=== PATIENT | female | born 1970 | race Caucasian/White ===

== ENCOUNTER → 2018-04-09 | Outpatient (CLI) | payer OTHER ==
[2018-04-10 01:23] LABS: Amylase 67 U/L (23-121); Lipase 106 U/L (14-63)
== END | disposition home or self-care (01) ==
LOC: LABWHC1 16:56
PROVIDERS: ATTEND Family Medicine
DX: R10.84 Generalized abdominal pain (principal)
CPT/HCPCS: 36415; 82150; 83690

== ENCOUNTER → 2019-04-04 | Outpatient (CLI) | payer OTHER ==
[2019-04-04 11:44] LABS: HGB 14.7 gm/dL (11.4-16.0); MCH 28.4 pg (25.0-35.0); MCHC 32.7 g/dL (31.0-37.0); MCV 86.9 fL (80.0-100.0); Mean Platelet Volume 7.8; Platelet Count 227 k/uL (150-450); RBC 5.18 m/uL (3.80-5.40); WBC 4.6 k/uL (3.8-10.6)
[2019-04-04 16:47] LABS: Thyroid Peroxidase Antibodies 36.1 U/mL (0.0-60.0)
[2019-04-04 16:58] LABS: African American GFR (CKD) 102.5 (60.0-200.0); Albumin 4.6 g/dL (3.80-4.90); Albumin/Globulin Ratio 2.56 (1.60-3.17); Anion Gap 6.3 mmol/L (4.00-12.00); Calcium 9.2 mg/dL (8.7-10.3); Carbon Dioxide 28.7 mmol/L (21.6-31.8); Globulin 1.8 g/dL (1.6-3.3); Non-African American GFR(CKD) 88.4 (60.0-200.0); Potassium 4.3 mmol/L (3.5-5.5); Total Bilirubin 0.5 mg/dL (0.2-1.2); Total Protein 6.4 g/dL (6.2-8.2)
[2019-04-04 17:06] LABS: Follicle Stimulating Hormone 21.5 mIU/mL; Prolactin 8.2 ng/mL (2.8-29.2); T4, Free (Free Thyroxine) 1.2 ng/dL (0.80-1.80)
[2019-04-04 18:28] LABS: Hemoglobin A1C 5.5 % (4.0-6.0)
[2019-04-04 21:43] LABS: ACTH 7.77 pg/mL (0.00-45.99)
== END | disposition home or self-care (01) ==
LOC: LABWHC1 10:02
PROVIDERS: ATTEND Internal Medicine Endocrinology, Diabetes & Metabolism
DX: R53.83 Other fatigue (principal); R73.09 Other abnormal glucose; R35.1 Nocturia
CPT/HCPCS: 36415; 80053; 82024; 82533; 82607; 83001; 83036; 84146; 84439; 84443; 84480; 85027; 86376

== ENCOUNTER → 2019-12-19 | Outpatient (CLI) | payer OTHER ==
[2019-12-19 12:47] LABS: HCT 45.1 % (34.0-46.0); MCH 29.6 pg (25.0-35.0); MCHC 33.2 g/dL (31.0-37.0); Mean Platelet Volume 7.5; Platelet Count 206 k/uL (150-450); RBC 5.07 m/uL (3.80-5.40); RDW 12.4 % (11.5-15.5); WBC 5.3 k/uL (3.8-10.6)
[2019-12-19 12:56] LABS: ALT 26 U/L (4-34); AST 26 U/L (14-36); African American GFR (CKD) >90 (>60 ml/min/1.73 sqM); Albumin 4.4 g/dL (3.5-5.0); Alkaline Phosphatase 79 U/L (38-126); Amylase 50 U/L (30-110); Anion Gap 7 mmol/L; Blood Urea Nitrogen 18 mg/dL (7-17); Calcium 9.4 mg/dL (8.4-10.2); Carbon Dioxide 30 mmol/L (22-30); Chloride 102 mmol/L (98-107); Glucose 93 mg/dL (74-99); Lipase 131 U/L (23-300); Non-African American GFR(CKD) >90 (>60 ml/min/1.73 sqM); Potassium 4.1 mmol/L (3.5-5.1); Sodium 139 mmol/L (137-145); Total Bilirubin 0.5 mg/dL (0.2-1.3); Total Protein 7.3 g/dL (6.3-8.2)
[2019-12-19 14:17] LABS: Erythrocyte Sedimentation Rate 2 mm/hr (0-20)
--- NOTE | 2019-12-19 15:13 | US ---
EXAMINATION TYPE: US abdomen complete DATE OF EXAM: 12/19/2019 COMPARISON: NONE CLINICAL HISTORY: R10.84 ABN PAIN. Heartburn for 3-4 weeks, RUQ pain for 4 days EXAM MEASUREMENTS: Liver Length: 14.2 cm Gallbladder Wall: 0.2 cm CBD: 0.6 cm Spleen: 12.4 cm Right Kidney: 9.6 x 3.7 x 4.3 cm Left Kidney: 11.3 x 4.7 x 4.7 cm Technical limitations due to large amount of overlying bowel content Pancreas: Obscured by bowel gas Liver: wnl Gallbladder: no evidence of stones Evidence for sonographic Haro's sign: No CBD: wnl Spleen: wnl Right Kidney: no evidence of hydronephrosis Left Kidney: possible stone upper pole = 0.7cm Upper IVC: wnl Abd Aorta: wnl IMPRESSION: 1. Echogenic foci with some posterior shadowing superior pole left kidney may be a nonobstructing ross al stone
== END | disposition home or self-care (01) ==
LOC: RADUSWWP 11:08
PROVIDERS: ATTEND Family Medicine
DX: R10.84 Generalized abdominal pain (principal)
CPT/HCPCS: 36415; 76700; 80053; 82150; 83690; 85027; 85652

== ENCOUNTER → 2019-12-30 | Outpatient (CLI) | payer OTHER ==
--- NOTE | 2019-12-30 10:31 | NM ---
EXAMINATION TYPE: NM hepatobiliary w CCK DATE OF EXAM: 12/30/2019 COMPARISON: Ultrasound abdomen 12/19/2019 HISTORY: Chronic cholecystitis, K 81.1 TECHNIQUE: After the intravenous administration of 4.9 mCi Tc 99m Mebrofenin hepatobiliary scintigrap hy is performed. Immediate images post injection. FINDINGS: There is satisfactory initial accumulation of tracer by the liver. The gallbladder is visualized wit hin 30 minutes. The small bowel activity is noted within 6 minutes. At one hour CCK was administere d, patient was injected with 1.6 mcg of Kinevac, and gallbladder ejection fraction is calculated at 8 9 %, above the upper limit of the normal range. Therefore there is no scintigraphic evidence of cyst ic or common bile duct obstruction to suggest acute cholecystitis. IMPRESSION: Findings could possibly represent hyperdynamic gallbladder
== END | disposition home or self-care (01) ==
LOC: RADNMMAIN 06:27
PROVIDERS: ATTEND Surgery
DX: K81.1 Chronic cholecystitis (principal)
CPT/HCPCS: 78227; A9537; J2805

== ENCOUNTER 2020-01-14 06:26 | Day surgery (SDC) | payer OTHER ==
[2020-01-13 09:13] VITALS: BMI 29.3
[~2020-01-14 06:26] MED LIST: ACETAMINOPHEN TAB 500 MG TAB PO ONE; DEXAMETHASONE SOD PHOSPHATE 4 MG/ML 1 ML VIAL IV ONE; HEPARIN SODIUM,PORCINE 5,000 UNIT/ML 1 ML VIAL SQ ONE; LIDOCAINE 1% (10MG/ML) FOR IV START INTRADERMA PRN; MIDAZOLAM 2 MG/2 ML VIAL IV PRN; ONDANSETRON 4 MG/2 ML VIAL IVP ONE
[2020-01-14] MEDS: LACTATED RINGERS 1,000 ML IV SCH ×2 (07:11→07:38)
[2020-01-14] MEDS ORDERED: GLYCOPYRROLATE 0.2 MG/ML 2 ML VIAL ONE (07:25)
[2020-01-14] MEDS ORDERED: ROCURONIUM 10 MG/ML (10 ML VIAL) IV ONE (07:25)
[2020-01-14] MEDS ORDERED: fentaNYL (PF) 50 MCG/ML 2 ML AMP ONE (07:25)
[2020-01-14] MEDS ORDERED: MIDAZOLAM 2 MG/2 ML VIAL ONE (07:25)
[2020-01-14] MEDS ORDERED: LIDOCAINE 1% INJ 10MG/ML (20 ML MDV) ONE (07:25)
[2020-01-14] MEDS ORDERED: NEOSTIGMINE 1 MG/ML 10 ML VIAL ONE (07:25)
[2020-01-14] MEDS ORDERED: PROPOFOL 10 MG/ML 20 ML VIAL IV ONE (07:25)
[2020-01-14] MEDS ORDERED: KETOROLAC 15 MG/ML 1 ML VIAL ONE (07:25)
[2020-01-14] MEDS ORDERED: BUPIVACAINE (PF) 0.5% 30 ML VIAL SQ ONE (07:56)
[2020-01-14] MEDS ORDERED: LACTATED RINGERS 1,000 ML IV ONE (08:15)
--- NOTE | 2020-01-14 08:21 | P.GSHP ---
History of Present Illness H&P Date: 01/14/20 Chief Complaint: Cholecystitis This is 49-year-old female is a complete right quadrant pain. Recent HIDA scan shows abnormal ejection fraction patient presents today for laparoscopic cholecystectomy for biliary dysfunction. Past Medical History Additional Past Medical History / Comment(s): hx migraines History of Any Multi-Drug Resistant Organisms: None Reported Past Surgical History: Tonsillectomy, Uterine Ablation Past Anesthesia/Blood Transfusion Reactions: No Reported Reaction Smoking Status: Never smoker Medications and Allergies Home Medications Medication Instructions Recorded Confirmed Type Imitrex 1 tab PO DIRECTED PRN 01/13/20 01/14/20 History Allergies Allergy/AdvReac Type Severity Reaction Status Date / Time Sulfa (Sulfonamide Allergy Rash/Hives Verified 01/14/20 06:53 Antibiotics) Surgical - Exam Vital Signs Temp Pulse Resp BP Pulse Ox 97.9 F 66 16 149/71 95 01/14/20 06:55 01/14/20 06:55 01/14/20 06:55 01/14/20 06:55 01/14/20 06:55 - General well developed, well nourished, no distress - Eyes PERRL - ENT normal pinna - Neck no masses - Respiratory normal expansion - Cardiovascular Rhythm: regular - Abdomen Abdomen: soft, non tender Assessment and Plan Assessment: Chronic cholecystitis. We'll perform laparoscopic cholecystectomy
--- NOTE | 2020-01-14 08:23 | P.OP ---
Date of Procedure: 01/14/20 Preoperative Diagnosis: Cholecystitis Postoperative Diagnosis: Cholecystitis Procedure(s) Performed: Laparoscopic cholecystectomy Anesthesia: CHING Surgeon: Nick Gasca Estimated Blood Loss (ml): 10 Pathology: other (gall bladder) Condition: stable Disposition: PACU Description of Procedure: The patient was placed on the operating table. The patient received a general endotracheal tube anesthesia. The patients abdomen was prepped and draped in the usual sterile fashion. Through an infraumbilical stab incision, the fascia of the anterior abdominal wall was grasped with a pair of Kochers and then the Veress needle was placed in the peritoneal cavity. Position of the Veress needle was confirmed with positive drop test. The abdomen was then insufflated. After adequate insufflation, the 10 mm trocar was placed in the peritoneal cavity. Following this the laparoscope was placed in the peritoneal cavity. The patient was placed in the head-up, right side up position and then a 5 mm trocar was placed in the right lateral and right subcostal position under direct visualization. A 8 mm trocar was placed in the epigastric position. The gallbladder was grasped in the fundus and infundibulum. Traction on the gallbladder was placed in the lateral and the cephalad positions. The triangle of Calot was visualized.. The cystic duct was bluntly dissected until the union of the cystic duct and common bile duct was seen. A critical view of safety was achieved. The cystic duct was then divided and sealed with the Harmonic scissors. A PDS Endoloop was then placed throughout the cystic duct stump. The cystic artery divided and sealed with the Harmonic scissors. The gallbladder was then removed from the liver bed using Harmonic scissors. The gallbladder was then extracted through the epigastric port site. Operative field was checked for any bleeding spots and Harmonic scissors was used to coagulate the liver bed. The abdomen was irrigated. The trocars were removed. The skin was closed using interrupted 3-0 Vicryl suture. Dermabond dressing were applied. The patient tolerated the procedure well.
[2020-01-14] MEDS: HYDROmorphone 0.5 MG/0.5 ML SYRINGE IVP PRN ×3 (08:30→08:47)
[2020-01-14 08:34] VITALS: TEMP 98
[2020-01-14 09:44] VITALS: RESP 16
[2020-01-14 11:20] VITALS: BP 134/70; PULSE 96
== END 2020-01-14 11:11 | disposition home or self-care (01) ==
LOC: OR 06:26
PROVIDERS: ATTEND Surgery
DX: K81.1 Chronic cholecystitis (principal); G43.909 Migraine, unspecified, not intractable, without status migrainosus; Z79.899 Other long term (current) drug therapy; Z90.89 Acquired absence of other organs; Z98.890 Other specified postprocedural states; Z88.2 Allergy status to sulfonamides
CPT/HCPCS: 81025; 88304; 47562; J2250; J1644; J1100; J2710; J0690; J2405; J2001; J3010; J1885; J2704; J1170

== ENCOUNTER → 2020-06-27 | Outpatient (CLI) | payer OTHER ==
[2020-06-27 17:50] LABS: Chol/HDL Ratio 4.78; LDL Cholesterol,Calculated 127.4 mg/dL (0.0-131.0); VLDL Calculation 23.6 mg/dL (5.00-40.00)
== END | disposition home or self-care (01) ==
LOC: LABWHC1 09:45
PROVIDERS: ATTEND Internal Medicine Cardiovascular Disease
DX: E78.2 Mixed hyperlipidemia (principal)
CPT/HCPCS: 36415; 80061; 84450; 84460

== ENCOUNTER → 2022-05-11 | Outpatient (CLI) | payer OTHER ==
[2022-05-11 18:21] LABS: Estradiol 46.9 pg/mL; Luteinizing Hormone 17.4 mIU/mL; Prolactin 11.3 ng/mL (2.800-29.200)
[2022-05-11 18:28] LABS: HCT 45.1 % (37.2-46.3); HGB 14.9 g/dL (12.0-15.0); MCH 29.1 pg (27.0-32.0); MCV 88.1 fL (80.0-97.0); Mean Platelet Volume 10.8 fL (9.5-12.2); NRBC Per 100 WBC 0 /100 WBCS (0.0-0.0); Platelet Count 225 X 10*3/uL (140-440); RBC 5.12 X 10*6/uL (4.10-5.20); RDW 12.2 % (11.5-14.5); WBC 5.53 X 10*3/uL (4.50-10.00)
[2022-05-11 18:36] LABS: African American GFR (CKD) 100.3 (60.0-200.0); Albumin 4.7 g/dL (3.8-4.9); Albumin/Globulin Ratio 2.04 (1.60-3.17); Anion Gap 14.8 mmol/L (10.00-18.00); BUN/Creat Ratio 29.5 Ratio (12.00-20.00); Blood Urea Nitrogen 23.6 mg/dL (9.0-27.0); Calcium 9.4 mg/dL (8.7-10.3); Carbon Dioxide 25.2 mmol/L (20.0-27.5); Follicle Stimulating Hormone 30.7 mIU/mL; Globulin 2.3 g/dL (1.6-3.3); Non-African American GFR(CKD) 86.6 (60.0-200.0); Potassium 4.1 mmol/L (3.5-5.5); T4, Free (Free Thyroxine) 1.36 ng/dL (0.800-1.800); Total Bilirubin 0.2 mg/dL (0.30-1.20)
== END | disposition home or self-care (01) ==
LOC: LABWHC1 14:42
PROVIDERS: ATTEND Internal Medicine Endocrinology, Diabetes & Metabolism
DX: R53.83 Other fatigue (principal); Z83.3 Family history of diabetes mellitus; Z78.0 Asymptomatic menopausal state
CPT/HCPCS: 36415; 80053; 82533; 82607; 82670; 83001; 83002; 83036; 84146; 84439; 84443; 84480; 85027

== ENCOUNTER → 2023-03-29 | Outpatient (CLI) | payer OTHER ==
[2023-03-29 18:05] LABS: HCT 39.9 % (37.2-46.3); HGB 13.5 g/dL (12.0-15.0); MCHC 33.8 g/dL (32.0-37.0); MCV 85.8 FL (80.0-97.0); Mean Platelet Volume 10.3 FL (9.5-12.2); NRBC Per 100 WBC 0 X 10*3/uL (0.00-0.01); Platelet Count 235 X 10*3/uL (140-440); RBC 4.65 X 10*6/uL (4.10-5.20); RDW 12.1 % (11.5-14.5); WBC 5.26 X 10*3/uL (4.50-10.00)
[2023-03-29 20:35] LABS: ALT 21 U/L (8-44); AST 24 U/L (13-35); Albumin 4.3 g/dL (3.8-4.9); Albumin/Globulin Ratio 1.95 Ratio (1.60-3.17); Alkaline Phosphatase 72 U/L (41-126); BUN/Creat Ratio 20.75 Ratio (12.00-20.00); Blood Urea Nitrogen 16.6 mg/dL (9.0-27.0); Calcium 9.4 mg/dL (8.7-10.3); Carbon Dioxide 24.3 mmol/L (21.6-31.8); Chloride 103 mmol/L (96-109); Globulin 2.2 g/dL (1.6-3.3); Glucose 88 mg/dL (70-110); Potassium 4.1 mmol/L (3.5-5.5); Sodium 139 mmol/L (135-145); Total Bilirubin 0.4 mg/dL (0.3-1.2); Total Protein 6.5 g/dL (6.2-8.2)
[2023-03-29 20:41] LABS: Follicle Stimulating Hormone 74.6 mIU/mL; Luteinizing Hormone 42.5 mIU/mL
== END | disposition home or self-care (01) ==
LOC: LABWHC1 14:23
PROVIDERS: ATTEND Internal Medicine Endocrinology, Diabetes & Metabolism
DX: R53.83 Other fatigue (principal); Z83.3 Family history of diabetes mellitus
CPT/HCPCS: 36415; 80053; 82533; 82607; 83001; 83002; 83036; 84146; 84443; 84480; 85027